=== PATIENT | male | born 1985 | race Caucasian/White ===

== ENCOUNTER 2022-09-13 18:49 | Emergency (ER) | payer BC, SELFPAY ==
[2022-09-13 18:50] VITALS: BP 126/75; PULSE 100; RESP 16; TEMP 36.7; O2SAT 99; BMI 31.1
--- NOTE | 2022-09-13 19:20 | RAD_ITS ---
STUDY: X-RAY - RIGHT KNEE REASON FOR EXAM: Male, 36 years old. Knee pain. Fall. TECHNIQUE: 4 view(s) of the knee. COMPARISON: None. FINDINGS: Normal visualized distal femur. Normal visualized proximal tibia and fibula. Normal proximal tibiofibular articulation. There is no acute fracture, dislocation or destructive osseous pathology. Normal medial femorotibial compartment. Normal lateral femorotibial compartment. Normal patellofemoral articulation. There is a soft tissue prominence in the suprapatellar region suggesting a small volume joint effusion. The soft tissue structures are unremarkable. RAD/Knee 4 or More Views IMPRESSION: Question small suprapatellar joint effusion. There is no fracture or dislocation. Electronically Signed: Angel Luis Blanco DO at 20:02 EDT ,
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
== END 2022-09-13 21:31 | disposition home or self-care (01) ==
PROVIDERS: Emergency Provider Emergency Medicine; Visit Provider Emergency Medicine
DX: S83.421A Sprain of lateral collateral ligament of right knee, initial encounter (principal); W17.89XA Other fall from one level to another, initial encounter; Y93.89 Activity, other specified; Y92.812 Truck as the place of occurrence of the external cause
CPT/HCPCS: 73564; 99284

== ENCOUNTER → 2022-09-23 | Outpatient (CLI) | payer BC, SELFPAY ==
--- NOTE | 2022-09-23 12:30 | MRI_ITS ---
STUDY: MRI RIGHT KNEE REASON FOR EXAM: Male, 37 years old. SPRAIN OF OTHER SPECIFIED PARTS OF RIGHT KNEE, INIT ENCNTR Technologist Notes pain lateral knee, x 2 weeks TECHNIQUE: Standardized fat and water weighted pulse sequences were obtained in all 3 orthogonal planes. COMPARISON: X-ray of the right knee dated September 13, 2022 FINDINGS: A mild impaction fracture of the anterior peripheral aspect of the lateral femoral condyle is present with mild to moderate underlying subchondral edema. There is slight concavity of the cortical surface of impaction. A moderate size joint effusion is also present. There is intra-substance myxoid degeneration of the posterior horn of the medial meniscus, but without a demonstrated meniscal tear. Normal anterior horn and body. There is diffuse, less than 50% thickness articular cartilage loss of the medial femorotibial compartment. Normal medial femoral condyle and tibial plateau. Normal medial collateral ligamentous complex (MCL). Normal distal semimembranosus, gracilis and semitendinosus tendons. Normal lateral meniscus. Normal hyaline cartilage of the lateral femorotibial compartment. Normal lateral tibial plateau. Normal proximal tibiofibular articulation. Normal lateral collateral (fibular) ligament. Normal popliteus tendon. Normal biceps femoris tendon. Normal anterior cruciate ligament (ACL). Normal posterior cruciate ligament (PCL). Normal congruent patellofemoral articulation. There is moderate fissuring and thinning of the cartilage overlying the median ridge of the patella. The remaining patellofemoral cartilage is normal. Normal medial and lateral patellar retinaculum. Normal quadriceps tendon. Normal patellar tendon. Normal Hoffa''s fat pad. The soft tissues are unremarkable. The otherwise visualized osseous structures are unremarkable. MRI/Lower Ext Joint Only (Routine) IMPRESSION: 1. Acute mild impaction fracture of the anterior aspect the lateral femoral condyle with marrow edema 2. Moderate size joint effusion 3. There is moderate fissuring and thinning of the cartilage overlying the median ridge of the patella. The remaining patellofemoral cartilage is normal. Electronically Signed: Gavin Abarca MD at 13:56 EDT ,
== END | disposition home or self-care (01) ==
PROVIDERS: Referring Provider Student in an Organized Health Care Education/Training Program; Visit Provider Student in an Organized Health Care Education/Training Program
DX: S72.421A Displaced fracture of lateral condyle of right femur, initial encounter for closed fracture (principal); S83.8X1A Sprain of other specified parts of right knee, initial encounter; X58.XXXA Exposure to other specified factors, initial encounter
CPT/HCPCS: 73721

== ENCOUNTER → 2024-11-30 | Outpatient (CLI) | payer BC, SELFPAY ==
[2024-11-30 17:30] LABS: Absolute Lymphocyte Count 2.69 X10^3/uL (0.83-4.51); Absolute Neutrophil Count 3.9 X10^3/uL (2.0-7.7); Basophil# 0.05 X10^3/uL; Basophil% 0.7 % (0-1); Eosinophil# 0.15 X10^3/uL; Hematocrit 44.6 % (40-54); Hemoglobin 15.5 g/dL (13.0-16.5); Lymphocyte # 2.69 X10^3/ul (0.83-4.51); Lymphocyte % 35.6 % (19-41); Mean Corp Hgb Conc 34.8 g/dL (32-36); Mean Corpuscular Hgb 30.1 pg (27.0-32.0); Mean Corpuscular Volume 86.6 fL (80-94); Mean Platelet Vol. 9.7 fl (6.2-12.0); Monocyte# 0.73 X10^3/uL; Monocyte% 9.7 % (0-10); NRBC Flagged by Analyzer 0 % (0-5); Neutrophil # 3.88 X10^3/uL (2.7-7.7); Neutrophil % 51.2 % (47-70); Platelet Count 417 K/mm3 (150-450); RBC Distribution Width CV 12.3 % (11.6-14.6); Red Blood Count 5.15 M/mm3 (4.6-6.2); White Blood Count 7.6 K/mm3 (4.4-11.0)
[2024-11-30 18:05] LABS: ALB/GLOB Ratio 0.9 RATIO (0.9-2.4); AST(SGOT) 30 U/L (15-37); Alanine Aminotransfer ALT/SGPT 72 U/L (16-61); Albumin, Serum 3.8 g/dL (3.2-5.0); Alkaline Phosphatase 83 U/L (45-117); Anion Gap 9 (5-15); BUN 14 mg/dL (7-18); BUN/Creat Ratio 13.5 RATIO (10-20); Calcium,Total 9.1 mg/dL (8.5-10.1); Chloride 106 mmol/L (98-107); Creatinine, Serum 1.04 mg/dL (0.70-1.30); EST Glomerular Filtration Rate 84 mL/min (>60); Est Glom Filt Rate - Afr Amer 102 mL/min (>60); Globulin 4.1 g/dL (2.2-4.2); Glucose 117 mg/dL (74-106); Magnesium 2.3 mg/dL (1.6-2.6); Potassium 3.7 mmol/L (3.5-5.1); Protein, Total 7.9 g/dL (6.4-8.2); Sodium Level 138 mmol/L (136-145); T4 Free Direct 0.87 ng/dL (0.76-1.46); Vitamin B12 461 pg/mL (211-911); Vitamin D,25 Hydroxy 12.8 ng/mL
[2024-12-03 14:02] LABS: Hemoglobin A1c 5.6 % (3.8-5.6)
[2024-12-03 14:14] LABS: Hepatitis B Surface Antigen Non-Reactive (Nonreactive); Hepatitis C Antibody Non-Reactive (Nonreactive)
[2024-12-03 16:08] LABS: Thyroglobulin Antibody < 1.0 IU/mL (0.0-0.9); Thyroid Peroxidase AB 23 IU/mL (0-34)
[2024-12-04 06:07] LABS: Hepatitis Be Ab Non Reactive (Negative)
== END | disposition home or self-care (01) ==
LOC: MFPLAB 15:51
PROVIDERS: PCP Family Medicine; Referring Provider Family Medicine; Visit Provider Family Medicine
DX: R73.09 Other abnormal glucose (principal); R94.6 Abnormal results of thyroid function studies; E04.1 Nontoxic single thyroid nodule; R03.0 Elevated blood-pressure reading, without diagnosis of hypertension; R53.83 Other fatigue
CPT/HCPCS: 36415; 80053; 82306; 82607; 83036; 83735; 84439; 84443; 85025; 86376; 86707; 86800; 86803; 87340

== ENCOUNTER → 2024-12-14 | Outpatient (CLI) | payer BC, SELFPAY ==
--- NOTE | 2024-12-14 10:19 | US_ITS ---
STUDY: THYROID ULTRASOUND REASON FOR EXAM: Male, 39 years old. Thyroid nodule. TECHNIQUE: Ultrasound evaluation of the thyroid was performed with real-time and static manley-scale imaging. COMPARISON: None. FINDINGS: RIGHT LOBE: The right lobe of the thyroid gland measures 4.5 cm x 1.7 cm x 1.4 cm. There is a homogeneous echotexture. There are no demonstrated solid, cystic or complex lesions. LEFT LOBE: The left lobe of the thyroid gland measures 4.7 cm x 1.1 cm x 1.3 cm. There is a homogeneous echotexture. There are no demonstrated solid, cystic or complex lesions. ISTHMUS: The isthmus measures 3 mm. The regional lymph nodes are normal. US/Thyroid IMPRESSION: Normal ultrasound examination of the thyroid. Electronically Signed: Murali Rutledge MD at 11:22 EST ,
== END | disposition home or self-care (01) ==
PROVIDERS: PCP Family Medicine; Referring Provider Family Medicine; Visit Provider Family Medicine
DX: E04.1 Nontoxic single thyroid nodule (principal)
CPT/HCPCS: 76536